=== PATIENT | male | born 1985 | race Caucasian/White ===

== ENCOUNTER 2018-12-30 09:14 | Emergency (ER) | payer BC ==
[2018-12-30] MEDS ORDERED: Ibuprofen 200 MG TAB ONE (09:59)
[2018-12-30] MEDS ORDERED: Acetaminophen 500 MG TAB ONE (09:59)
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
== END 2018-12-30 11:32 | disposition home or self-care (01) ==
LOC: ERS 09:14
DX: S20.212A Contusion of left front wall of thorax, initial encounter (principal); V89.2XXA Person injured in unspecified motor-vehicle accident, traffic, initial encounter
CPT/HCPCS: 71045

== ENCOUNTER 2019-04-05 07:41 | Outpatient (CLI) | payer OTHER ==
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
[2019-04-05] MEDS ORDERED: Iopamidol-370 76% 500 ML 1 ML ONE (10:59)
== END 2019-04-05 07:42 | disposition home or self-care (01) ==
LOC: BICCT 07:41
PROVIDERS: ATTEND Family Medicine
DX: R10.30 Lower abdominal pain, unspecified (principal)
CPT/HCPCS: 74177; Q9967